=== PATIENT | female | born 1955 | race Caucasian/White ===

== ENCOUNTER → 2018-03-24 12:13 | Outpatient (CLI) | payer OTHER, SELFPAY ==
--- NOTE | 2018-03-24 | DI.MG.S_ITS ---
BILATERAL DIGITAL SCREENING MAMMOGRAM 3D/2D WITH CAD: 03/24/2018 CLINICAL: Routine screening. Comparison is made to exams dated: 11/26/2016 mammogram, 10/18/2015 mammogram, and 07/11/2014 mammogram - [facility]. There are scattered fibroglandular elements in both breasts. Current study was also evaluated with a Computer Aided Detection (CAD) system. No significant masses, calcifications, or other findings are seen in either breast. There has been no significant interval change. IMPRESSION: NEGATIVE There is no mammographic evidence of malignancy. A 1 year screening mammogram is recommended. This exam was interpreted at Station ID: [id number]. NOTE: For mammograms, a report in lay terms will be sent to the patient. Approximately 15% of breast malignancies will not be visualized mammographically. In the management of a palpable breast mass, a negative mammogram must not discourage biopsy of a clinically suspicious lesion. Electronically Signed By: Leonard villalba/lorenzo:03/25/2018 17:45:38 copy to: Linda Og letter sent: Normal Exam ACR BI-RADS Category 1: Negative 3341F
== END ==
PROVIDERS: PCP Internal Medicine; Visit Provider Internal Medicine
DX: Z12.31 Encounter for screening mammogram for malignant neoplasm of breast (principal)
CPT/HCPCS: 77063; 77067

== ENCOUNTER 2018-05-19 10:31 | Day surgery (SDC) | payer OTHER, SELFPAY ==
[2018-05-19] VITALS (7 sets, daily range): BP systolic 111–141; BP diastolic 69–82; PULSE 86–105; RESP 10–18; TEMP 36.8–37.3; O2SAT 96–97; BMI 25.8
--- NOTE | 2018-05-19 | PATH_ITS ---
[facility] Accession Number: [id number] . 01 Material submitted: . HEPATIC FLEXTURE POLYP . 02 Diagnosis: Hepatic Flexure Polyp: Tubular adenoma. MRV/05/20/2018 . 02 Electronically signed: . Librado Mckinney MD, PhD, Pathologist NPI- [id number] . 01 Gross description: . Received in one formalin-filled container labeled with the patient's name and labeled hepatic flexure polyp, are two 0.1-0.2 cm portions of tissue, entirely submitted in one cassette. ([id number]) /FRR . 02 Pathologist provided ICD-10: D12.3 . 02 CPT . 698467 Performed at: 01 [facility] [address] [id number] MD Leonides Genao MD Phone: [phone] Performed at: 02 [facility] [place] [address] [place], [place] [id number] MD Ger Cabrera MD Phone: [phone]
[2018-05-19] MEDS: SODIUM CHLORIDE 0.9% 1,000 ML 100 ML IV (10:44)
--- NOTE | 2018-05-19 12:10 | PM.HP.1 ---
History of Present Illness Date Patient Seen: 05/19/18 Time Patient Seen: 12:10 Chief complaint: [id number] Narrative: Personal history of colon polyps with extensive family history of colon polyps and a distant family member with colorectal cancer at an elderly age. Need for follow-up colonoscopy Patient History Medical History Acne (Chronic ~1985) Ankle pain (Chronic) Anxiety (Chronic) Cardiac arrhythmia (Chronic) Carpal tunnel syndrome (Chronic) Chlamydia (Chronic ~1981) Chronic back pain (Chronic ~2011) Colon polyps (Chronic ~2006) Foot pain (Chronic ~2004) Genital warts (Chronic ~1973) History of frequent headaches (Chronic) Hyperlipidemia (Chronic) Neck pain (Chronic ~2011) Osteoarthritis (Chronic ~2004) Plantar warts (Chronic ~1973) Shoulder pain (Chronic) Sleep apnea (Chronic ~2015) Thyroid nodule (Chronic ~2013) Tinnitus (Chronic ~2013) Urinary incontinence (Chronic ~2014) Vision abnormalities (Chronic ~1999) Abnormal Pap smear of cervix (Resolved) Chickenpox (Resolved) Fracture (Resolved ~1971) Measles (Resolved) Morphea (Resolved ~1979) Surgical History History of ankle surgery (Resolved) Anesthesia (Inactive) History of elective History of tonsillectomy (~1960) Family & Social History Social History: household members family Tobacco & Substance use: Smoking Status Never smoker Meds Home Medications Medication Instructions Recorded Confirmed Type lorazepam 0.5 mg tablet 0.25 mg PO BEDTIME PRN 03/24/18 05/19/18 History [ESTRADIOL PEARLS] 25 mcg VAGINAL 2XW #8 03/26/18 05/19/18 Rx Allergies Allergy/AdvReac Type Severity Reaction Status Date / Time Sulfa (Sulfonamide Allergy Unknown Verified 05/19/18 11:00 Antibiotics) [SULFA (SULFONAMIDE ANTIBIOTICS)] Exam Vital Signs (past 8 hours): - 05/19/18 10:46 Temperature 98.2 F Pulse Rate 105 H Respiratory Rate 16 Blood Pressure 141/82 H Pulse Oximetry 97 Oxygen Delivery Method Room Air Narrative Exam Narrative: Oral pharynx: Free of lesion Chest: Clear to auscultation percussion Cardiac exam: No S3 or murmur Assessment & Plan Plan: Assessment/Plan Narrative: Personal history of colon polyps and family history of colon polyps. Need for follow-up colonoscopy
[2018-05-19] MEDS: MIDAZOLAM 5 MG/5 ML VIAL IV (12:11)
[2018-05-19] MEDS: fentaNYL 250 MCG/5 ML INJ IV (12:12)
--- NOTE | 2018-05-19 12:12 | PM.OP.ENDO ---
Operative Date/Time/Diagnoses Date of procedure: 05/19/18 Time of procedure: 12:12 Pre-op diagnosis: See indication Post-op diagnosis: same Procedure & Clinicians Study performed: Colonoscopy Same procedure as scheduled: Yes Indications: Personal history of colon polyps and family history of colon polyps Surgeon: Mook Reveles Procedure Notes Procedure in detail: After informed consent was obtained the patient was placed in left lateral decubitus position. The video colonoscope was introduced the rectum and slowly advanced to the cecum. On slow withdrawal the mucosa was carefully examined. Preparation was good. Scope was removed. Patient tolerated the procedure well Blood loss none Complications none Sedation Fentanyl 100 mcg Versed 8 mg IV titration Total sedation time 18 min Findings 1. Extensive sigmoid diverticulosis 2. 3 mm polyp at the hepatic flexure Jumbo biopsy and removed completely 3. Otherwise negative colonoscopy to cecum Patient will be informed about biopsy results but will just routinely need follow-up in 5 years due to past history and family history.
== END 2018-05-19 13:17 | disposition home or self-care (01) ==
PROVIDERS: PCP Internal Medicine; Visit Provider Internal Medicine Gastroenterology
PROC: 0DJD8ZZ Inspection of Lower Intestinal Tract, Via Natural or Artificial Opening Endoscopic (ICD-10-PCS; CPT 45378; principal; 2018-05-19 11:30)
DX: Z12.11 Encounter for screening for malignant neoplasm of colon (principal); D12.3 Benign neoplasm of transverse colon; K57.30 Diverticulosis of large intestine without perforation or abscess without bleeding; F41.9 Anxiety disorder, unspecified; E78.5 Hyperlipidemia, unspecified; Z86.010 Personal history of colon polyps; Z83.71 Family history of colonic polyps; G47.30 Sleep apnea, unspecified
CPT/HCPCS: 45380; J2250; J3010

== ENCOUNTER → 2019-01-21 10:57 | Outpatient (CLI) | payer OTHER, SELFPAY ==
--- NOTE | 2019-01-21 12:23 | DI.CT.S_ITS ---
PROCEDURE: CT ABDOMEN WWO PELVIS W INDICATIONS: CYST ON PANCREAS TECHNIQUE: After the administration of oral contrast, 5 mm thick sections acquired from the diaphragms to the iliac crests. After the administration of intravenous contrast, 5 mm thick sections acquired from the diaphragms to the symphysis. 5 mm thick coronal and sagittal reformats were acquired. For radiation dose reduction, the following was used: automated exposure control, adjustment of mA and/or kV according to patient size. COMPARISON: [facility], CT, ABDOMEN/PELVIS WITH CONTRAST, 11/27/2017, 11:26. [facility], CT, ABDOMEN W&WO CONTRAST, 12/07/2017, 12:38. FINDINGS: Image quality: Excellent. ABDOMEN: Lung bases: Lung bases are clear. Heart size is normal. Solid organs: Within the medial uncinate process of the pancreas, nodule measuring 7 mm in greatest diameter with a central polypoid component, morphology very similar compared to the prior study. No wall thickening, calcification, or significant enhancement. The pancreas otherwise enhances normally without ductal dilatation, surrounding inflammation, or other cystic or solid masses. Liver is normal in size and enhancement. Gallbladder is normal. Biliary system is non-dilated. Spleen is normal in size and enhancement. No adrenal nodules. Both kidneys are normal in size. No hydronephrosis or nephrolithiasis. Bowel and peritoneum: Stomach, small and large bowel loops are normal in caliber and wall thickness. No free fluid or air. Normal appendix. Nodes and vessels: No retroperitoneal or mesenteric adenopathy by size criteria. Aorta and inferior vena are normal in caliber. Miscellaneous: No ventral hernias. PELVIS: Genitourinary: Bladder wall thickness is normal. Retroverted uterus with a large exophytic uterine fibroid measuring approximately 5.6 cm in diameter. Miscellaneous: No inguinal hernias or adenopathy. Bones: No suspicious bony lesions. No vertebral body compression fractures. Lower lumbar degenerative disc and endplate changes. IMPRESSION: 1. Stable subcentimeter uncinate process pancreatic nodule without suspicious features. One year followup pancreatic protocol CT to assess size is recommended. Dictated by: Ana Whiteside M.D. on 01/21/2019 at 13:32 Approved by: Ana Whiteside M.D. on 01/21/2019 at 13:43
== END ==
PROVIDERS: PCP Specialist; Visit Provider Internal Medicine
DX: K86.2 Cyst of pancreas (principal)
CPT/HCPCS: 74177; 74178; Q9967

== ENCOUNTER → 2019-04-05 12:01 | Outpatient (CLI) | payer OTHER, SELFPAY ==
--- NOTE | 2019-04-05 | DI.MG.S_ITS ---
BILATERAL DIGITAL SCREENING MAMMOGRAM 3D/2D WITH CAD: 04/05/2019 CLINICAL: Routine screening. Comparison is made to exams dated: 03/24/2018 mammogram, 11/26/2016 mammogram, and 10/18/2015 mammogram - [facility]. There are scattered fibroglandular elements in both breasts. Current study was also evaluated with a Computer Aided Detection (CAD) system. No significant masses, calcifications, or other findings are seen in either breast. There has been no significant interval change. IMPRESSION: NEGATIVE There is no mammographic evidence of malignancy. A 1 year screening mammogram is recommended. This exam was interpreted at Station ID: [id number]. NOTE: For mammograms, a report in lay terms will be sent to the patient. Approximately 15% of breast malignancies will not be visualized mammographically. In the management of a palpable breast mass, a negative mammogram must not discourage biopsy of a clinically suspicious lesion. Electronically Signed By: Jarad bergeron/lorenzo:04/05/2019 18:48:59 copy to: Linda Og letter sent: Normal Exam ACR BI-RADS Category 1: Negative 3341F
--- NOTE | 2019-04-05 | DI.RAD.S_ITS ---
PROCEDURE: XR FOOT RT MIN 3V INDICATIONS: RIGHT HEEL PAIN TECHNIQUE: 3 views of the foot were acquired. COMPARISON: [facility], , FOOT 3V RIGHT, 12/08/2013, 9:26. [facility], , FOOT 3V RIGHT, 10/28/2010, 16:02. FINDINGS: Bones: No fractures or dislocations. No suspicious bony lesions. There are severe osteoarthritis at the MTP joint is present. Soft tissues: No tibiotalar joint effusion. Achilles tendon appears normal. IMPRESSION: No trauma found. Osteoarthritis at the first MTP joint is prominent. A source of calcaneal pain is not seen. Dictated by: Mario Alberto Fragoso M.D. on 04/05/2019 at 14:35 Approved by: Mario Alberto Fragoso M.D. on 04/05/2019 at 15:20
== END ==
PROVIDERS: Visit Provider Internal Medicine
DX: Z12.31 Encounter for screening mammogram for malignant neoplasm of breast (principal); M79.671 Pain in right foot; M19.071 Primary osteoarthritis, right ankle and foot
CPT/HCPCS: 73630; 77063; 77067

== ENCOUNTER → 2020-02-22 12:16 | Outpatient (CLI) | payer OTHER, SELFPAY ==
--- NOTE | 2020-02-22 | DI.RAD.S_ITS ---
PROCEDURE: XR LUMBAR SPINE 2-3V INDICATIONS: Low Back Pain TECHNIQUE: 3 views of the lumbar spine were acquired. COMPARISON: None. FINDINGS: Bones: No fracture or focal osseous destruction. Straightening of the normal lordotic curvature. Multilevel degenerative endplate sclerosis and spurring. Diffuse facet arthropathy. Severe narrowing of the L3-L4 and L4-L5 disc space. Mild narrowing of the L5-S1 disc space. Mild narrowing of the remaining visualized disc spaces. Mild levocurvature. Sacroiliac joints appear grossly intact, with degenerative sclerosis. Soft tissues: Overlying bowel gas pattern is normal. No suspicious soft tissue calcifications. IMPRESSION: Multilevel lumbar spondylosis, most pronounced at L3-L4. Diffuse facet arthropathy Mild levocurvature Dictated by: Rafat Hoffmann M.D. on 02/22/2020 at 13:46 Approved by: Rafat Hoffmann M.D. on 02/22/2020 at 13:48
== END ==
PROVIDERS: PCP Internal Medicine; Referring Provider Internal Medicine; Visit Provider Internal Medicine
DX: M54.5 Low back pain (principal); M47.816 Spondylosis without myelopathy or radiculopathy, lumbar region
CPT/HCPCS: 72100

== ENCOUNTER → 2020-03-17 09:44 | Outpatient (CLI) | payer OTHER, SELFPAY ==
[2020-03-17 10:25] LABS: Hematocrit 41.2 % (36-46); Hemoglobin 14.2 g/dL (12.0-16.0); Mean Corpuscular HGB Conc 34.5 % (30-36); Mean Corpuscular Hemoglobin 30.8 PG (26-34); Mean Corpuscular Volume 89.4 fL (80-100); Platelet Count 353 X10^3/uL (150-400); Red Cell Distribution Width 13.3 % (11.6-14.8); White Blood Cell Count 5.8 X10^3/uL (4.5-11.0)
[2020-03-17 10:42] LABS: Alanine Aminotransferase 26 IU/L (<35); Albumin 4.6 g/dL (3.5-5.0); Albumin Globulin Ratio 1.7 (1.0-2.8); Alkaline Phosphatase 54 U/L (38-126); Aspartate Aminotransferase 36 IU/L (14-36); BUN Creatinine Ratio 11.1 (6-22); Bilirubin Total 0.5 mg/dL (0.2-1.3); Blood Urea Nitrogen 10 mg/dL (7-17); Calcium 10.5 mg/dL (8.4-10.2); Carbon Dioxide 30 mmol/L (22-32); Chloride 104 mmol/L (98-107); Cholesterol 254 mg/dL (140-199); Estimated Glomerular Filt Rate > 60.0 mL/min (>60); Globulin 2.7 g/dL (1.7-4.1); Glucose 95 mg/dL (80-110); HDL Cholesterol 49 mg/dL (40-60); HEMOLYSIS < 15 (0-50); LDL Cholesterol Calculated 182 mg/dL (<100); Lipase 69 U/L (23-300); Sodium 140 mmol/L (137-145); Total Protein 7.3 g/dL (6.3-8.2); Triglycerides 117 mg/dL (35-150)
[2020-03-17 10:49] LABS: C-Reactive Protein Quant < 0.5 mg/dL (<1.0)
[2020-03-17 11:05] LABS: TSH w/ Reflex to FT4 2.75 uIU/mL (0.47-4.68)
[2020-03-17 11:07] LABS: Erythrocyte Sedimentation Rate 9 MM/HR (0-20)
== END ==
PROVIDERS: PCP Internal Medicine; Referring Provider Internal Medicine; Visit Provider Internal Medicine
DX: M35.3 Polymyalgia rheumatica (principal)
CPT/HCPCS: 36415; 80053; 80061; 83690; 84443; 85027; 85651; 86140

== ENCOUNTER → 2020-03-21 08:43 | Outpatient (CLI) | payer OTHER, SELFPAY ==
--- NOTE | 2020-03-21 | DI.CT.S_ITS ---
PROCEDURE: CT ABDOMEN W CON INDICATIONS: CYST OF PANCREAS TECHNIQUE: After the administration of intravenous contrast, 5 mm thick sections acquired from the diaphragm to the iliac crests. 5 mm coronal and sagittal reformats were performed. For radiation dose reduction, the following was used: automated exposure control, adjustment of mA and/or kV according to patient size. COMPARISON: [facility], CT, ABDOMEN W&WO CONTRAST, 12/07/2017, 12:38. [facility], CT, CT ABDOMEN WWO PELVIS W, 01/21/2019, 11:53. FINDINGS: Image quality: Excellent. Lung bases: Lung bases are clear. Heart size is normal. Solid organs: Liver is normal in size and enhancement. Gallbladder is unremarkable. Biliary system is non dilated. Insonated process pancreas lesion is unchanged in appearance, previously measuring 7 mm in currently measuring 6 mm, with a peripheral low-density component and a central higher density component, possibly representing a small polypoid area. It is unchanged dating back to 12/07/17. Spleen is normal in size and enhancement. No adrenal nodules. Kidneys demonstrate normal size and enhancement, without hydronephrosis. Peritoneum and bowel: Bowel loops demonstrate normal wall thickness and caliber. No free fluid or air. Nodes and vessels: No retroperitoneal or mesenteric adenopathy by size criteria. Aorta and inferior vena cava are normal in size. Miscellaneous: No ventral hernias. IMPRESSION: Stable subcentimeter low-density nodular lesion of the uncinate process of the pancreas. Continued 1 year follow-up pancreatic protocol CT is suggested. Dictated by: Parveen Ocasio M.D. on 03/21/2020 at 11:08 Approved by: Parveen Ocasio M.D. on 03/21/2020 at 11:40
== END ==
PROVIDERS: PCP Internal Medicine; Referring Provider Internal Medicine; Visit Provider Internal Medicine
DX: K86.2 Cyst of pancreas (principal)
CPT/HCPCS: 74160; Q9967

== ENCOUNTER → 2020-04-25 14:10 | Outpatient (CLI) | payer OTHER, SELFPAY ==
--- NOTE | 2020-04-25 | DI.US.S_ITS ---
PROCEDURE: US PELVIC COMPLETE INDICATIONS: Menopausal Subserosal leiomyoma of uterus TECHNIQUE: Real-time scanning was performed of the pelvic organs, with image documentation. Additional endovaginal scanning was necessary due to incomplete visualization of the adnexal and endometrial structures by transabdominal scanning. COMPARISON: [facility], CT, CT ABDOMEN WWO PELVIS W, 01/21/2019, 11:53. [facility], CT, CT ABDOMEN W CON, 03/21/2020, 9:02. FINDINGS: Transabdominal scanning: Limited scanning through the kidneys shows no hydronephrosis. No pathologic free abdominal or pelvic fluid. Endovaginal scanning: Uterus: Uterus is normal in size at 6.4 x 3.9 x 5.8 cm. There is a an exophytic fibroid seen on the right, measuring 5.5 x 4.5 x 4.7 centimeters. The endometrium measures 2 mm in combined thickness. Ovaries: Neither ovary can be seen. No adnexal masses are seen on either side. IMPRESSION: There is a 5.5 centimeter exophytic fibroid seen on the right side. This is similar to the January 21, 2019 CT examination. Dictated by: Dallin Martínez M.D. on 04/25/2020 at 15:37 Approved by: Dallin Martínez M.D. on 04/25/2020 at 15:40
== END ==
PROVIDERS: PCP Internal Medicine; Referring Provider Internal Medicine; Visit Provider Internal Medicine
DX: D25.2 Subserosal leiomyoma of uterus (principal); Z78.0 Asymptomatic menopausal state; R29.890 Loss of height
CPT/HCPCS: 76856; 77080

== ENCOUNTER → 2020-04-30 09:04 | Outpatient (CLI) | payer OTHER, SELFPAY ==
[2020-04-30 09:39] LABS: Calcium 9.9 mg/dL (8.4-10.2)
[2020-04-30 09:59] LABS: Vitamin D 25 Hydroxy (D3) 32.9 ng/mL (30.0-100.0)
[2020-05-01 18:36] LABS: Ionized Calcium 5.1 mg/dL (4.5-5.6); Parathyroid Hormone Int 35 pg/mL (15-65)
== END ==
PROVIDERS: PCP Internal Medicine; Referring Provider Internal Medicine; Visit Provider Internal Medicine
DX: E83.52 Hypercalcemia (principal)
CPT/HCPCS: 36415; 82306; 82310; 82330; 83970

== ENCOUNTER → 2020-12-08 11:13 | Outpatient (CLI) | payer OTHER, SELFPAY ==
--- NOTE | 2020-12-08 | DI.MG.S_ITS ---
BILATERAL DIGITAL SCREENING MAMMOGRAM 3D/2D WITH CAD: 12/08/2020 CLINICAL: Routine screening. Comparison is made to exams dated: 04/05/2019 mammogram, 03/24/2018 mammogram, and 11/26/2016 mammogram - [facility]. There are scattered fibroglandular elements in both breasts. Current study was also evaluated with a Computer Aided Detection (CAD) system. No significant masses, calcifications, or other findings are seen in either breast. There has been no significant interval change. IMPRESSION: NEGATIVE There is no mammographic evidence of malignancy. A 1 year screening mammogram is recommended. This exam was interpreted at Station ID: [id number]. NOTE: For mammograms, a report in lay terms will be sent to the patient. Approximately 15% of breast malignancies will not be visualized mammographically. In the management of a palpable breast mass, a negative mammogram must not discourage biopsy of a clinically suspicious lesion. Electronically Signed By: Ana mondragon/lorenzo:12/10/2020 09:20:26 copy to: Linda Og letter sent: Normal Exam ACR BI-RADS Category 1: Negative 3341F
== END ==
PROVIDERS: PCP Internal Medicine; Referring Provider Internal Medicine; Visit Provider Internal Medicine
DX: Z12.31 Encounter for screening mammogram for malignant neoplasm of breast (principal)
CPT/HCPCS: 77063; 77067

== ENCOUNTER → 2021-02-18 10:40 | Outpatient (CLI) | payer OTHER, SELFPAY ==
--- NOTE | 2021-02-18 10:42 | DI.RAD.S_ITS ---
PROCEDURE: XR ANKLE RT MIN 3V INDICATIONS: rock dropped on foot TECHNIQUE: 3 views of the ankle were acquired. COMPARISON: None. FINDINGS: Bones: No fractures or dislocations. Ankle mortise is normally aligned. No suspicious bony lesions. Plantar and posterior calcaneal spurring. Soft tissues: No tibiotalar joint effusion. Achilles tendon appears normal. IMPRESSION: No acute fracture. If the patient's pain or other symptoms persist, consider further evaluation with MRI Dictated by: Rafat Hoffmann M.D. on 02/18/2021 at 12:19 Approved by: Rafat Hoffmann M.D. on 02/18/2021 at 12:20
--- NOTE | 2021-02-18 10:42 | DI.RAD.S_ITS ---
PROCEDURE: XR FOOT RT MIN 3V INDICATIONS: rock dropped on foot TECHNIQUE: 3 views of the foot were acquired. COMPARISON: [facility], CR, XR FOOT RT MIN 3V, 04/05/2019, 13:51. FINDINGS: Bones: No acute fracture identified. There is moderate 1st MTP osteoarthritis with associated bulky osteophyte formation especially along the dorsal aspect. Plantar calcaneal spurring is present. Soft tissues: No tibiotalar joint effusion. Achilles tendon appears normal. IMPRESSION: No acute fracture seen. 1st MTP osteoarthritis with associated bulky osteophyte formation raising the possibility of chronic hallux rigidus. Dictated by: Rafat Hoffmann M.D. on 02/18/2021 at 12:17 Approved by: Rafat Hoffmann M.D. on 02/18/2021 at 12:19
== END ==
PROVIDERS: PCP Internal Medicine; Referring Provider Physician Assistant; Visit Provider Physician Assistant
DX: R60.9 Edema, unspecified (principal); M19.071 Primary osteoarthritis, right ankle and foot; M77.31 Calcaneal spur, right foot
CPT/HCPCS: 73610; 73630

== ENCOUNTER → 2021-08-20 09:34 | Outpatient (CLI) | payer OTHER, SELFPAY ==
--- NOTE | 2021-08-20 09:41 | DI.RAD.S_ITS ---
PROCEDURE: XR CERVICAL SPINE 2V OR 3V INDICATIONS: CERVICAL PAIN TECHNIQUE: 3 view(s) of the cervical spine were acquired. COMPARISON: None. FINDINGS: Bones: No fractures or dislocations to the T2 level. The lateral masses of C1 appear intact on the odontoid view. No suspicious bony lesions. Reversal of the normal cervical lordosis may be related to muscle spasm. Disc space narrowing and sclerotic facet joints noted at C4-5, C5-6 and C6-7. Craniovertebral relationships normal Soft tissues: No prevertebral soft tissue swelling. IMPRESSION: Degenerative disc disease and arthropathy mid cervical spine results in reversal the normal cervical lordosis. Approved by: Titi Whitaker M.D. on 08/20/2021 at 11:19
[2021-08-20 11:27] LABS: Hematocrit 40.7 % (36-46); Hemoglobin 14.2 g/dL (12.0-16.0); Mean Corpuscular HGB Conc 34.8 % (30-36); Mean Corpuscular Hemoglobin 30.9 PG (26-34); Platelet Count 369 X10^3/uL (150-400); Red Blood Cell Count 4.58 X10^6/uL (4.0-5.2); Red Cell Distribution Width 13.4 % (11.6-14.8); White Blood Cell Count 6.3 X10^3/uL (4.5-11.0)
[2021-08-20 11:28] LABS: Alanine Aminotransferase 28 IU/L (<35); Albumin 4.6 g/dL (3.5-5.0); Albumin Globulin Ratio 1.6 (1.0-2.8); Alkaline Phosphatase 57 U/L (38-126); Aspartate Aminotransferase 36 IU/L (14-36); BUN Creatinine Ratio 15.5 (6-22); Bilirubin Total 0.5 mg/dL (0.2-1.3); Blood Urea Nitrogen 13 mg/dL (7-17); Carbon Dioxide 29 mmol/L (22-32); Chloride 104 mmol/L (98-107); Cholesterol 296 mg/dL (140-199); Estimated Glomerular Filt Rate > 60.0 mL/min (>60); Globulin 2.9 g/dL (1.7-4.1); Glucose 96 mg/dL (80-110); HDL Cholesterol 76 mg/dL (40-60); HEMOLYSIS < 15 (0-50); LDL Cholesterol Calculated 201 mg/dL (<100); Potassium 4.3 mmol/L (3.4-5.1); Sodium 139 mmol/L (137-145); Total Protein 7.5 g/dL (6.3-8.2); Triglycerides 94 mg/dL (35-150)
[2021-08-20 11:59] LABS: TSH w/ Reflex to FT4 2.36 uIU/mL (0.47-4.68)
[2021-08-20 12:17] LABS: Hep C Virus Ab w/Reflex Quant NEGATIVE s/c (NEGATIVE)
== END ==
PROVIDERS: PCP Internal Medicine; Referring Provider Internal Medicine; Visit Provider Internal Medicine
DX: M48.02 Spinal stenosis, cervical region (principal); M47.812 Spondylosis without myelopathy or radiculopathy, cervical region; M50.323 Other cervical disc degeneration at C6-C7 level; Z11.59 Encounter for screening for other viral diseases; E78.2 Mixed hyperlipidemia; K86.2 Cyst of pancreas
CPT/HCPCS: 36415; 72040; 80053; 80061; 84443; 85027; 86803

== ENCOUNTER → 2021-08-29 10:28 | Outpatient (CLI) | payer OTHER, SELFPAY ==
--- NOTE | 2021-08-29 10:30 | DI.CT.S_ITS ---
PROCEDURE: CT ABDOMEN PELVIS W CON INDICATIONS: Cyst of pancreas. Lower pelvic pain TECHNIQUE: After the administration of oral and IV contrast, axial sections were acquired from the lung bases to the pubic symphysis. Coronal and sagittal reformats were performed. For radiation dose reduction, the following was used: automated exposure control, adjustment of mA and/or kV according to patient size. COMPARISON: [facility], CT, ABDOMEN/PELVIS WITH CONTRAST, 11/27/2017, 11:26. FINDINGS: Image quality: Excellent. Lung bases: Unremarkable. Heart: No significant findings. ABDOMEN: Liver: Decreased attenuation of the liver, compatible with hepatic steatosis. Normal enhancement and contour. A 6 mm hypoattenuating lesion in the right hepatic lobe (2-29), which may reflect a cyst or hemangioma. Gallbladder: No gallbladder wall thickening or pericholecystic fluid. Biliary ducts: Unremarkable. Pancreas: Redemonstrated 6 mm hypoattenuating lesion in the uncinate process (8-38), unchanged compared to prior studies. No pancreatic duct dilatation is appreciated. Spleen: Unremarkable. Adrenal Glands: Unremarkable. Kidneys and Ureters: Unremarkable. Stomach and Bowel: No evidence of intestinal obstruction or inflammatory change. Normal appearance of the appendix. Peritoneum: No abnormal intraperitoneal fluid. No free air. Ventral Wall: No hernia. Abdominal Nodes: No retroperitoneal or mesenteric adenopathy by size criteria. Vessels: Aorta and inferior vena cava are normal in size. PELVIS: Pelvic Organs: Redemonstrated hypoattenuating lesion extending from the right aspect of the uterus, measuring up to 5 cm, likely reflecting an exophytic fibroid. Bladder: Not well distended but grossly unremarkable. Pelvic Nodes: No enlarged lymph nodes. Miscellaneous: Small bilateral fat containing inguinal hernias are seen. Bones: Multifocal degenerative change IMPRESSION: 1. Stable hypoattenuating lesion in the pancreatic uncinate process dating back to 2018, which may reflect an IPMN or lipoma. Consider magnetic resonance imaging for further evaluation as clinically warranted. Dictated by: Jonathon Gallo M.D. on 08/29/2021 at 11:24 Approved by: Jonathon Gallo M.D. on 08/29/2021 at 11:43
== END ==
PROVIDERS: PCP Internal Medicine; Referring Provider Internal Medicine; Visit Provider Internal Medicine
DX: K86.2 Cyst of pancreas (principal); R10.2 Pelvic and perineal pain
CPT/HCPCS: 74177

== ENCOUNTER → 2023-01-08 09:09 | Outpatient (CLI) | payer OTHER, SELFPAY ==
--- NOTE | 2023-01-08 09:12 | DI.MG.S_ITS ---
BILATERAL DIGITAL SCREENING MAMMOGRAM 3D/2D WITH CAD: 01/08/2023 CLINICAL: Routine screening. Comparison is made to exams dated: 12/08/2020 mammogram, 04/05/2019 mammogram, 03/24/2018 mammogram, and 11/26/2016 mammogram - [facility]. There are scattered areas of fibroglandular density in both breasts (category b / 25%-50% glandular tissue). Current study was also evaluated with a Computer Aided Detection (CAD) system. No significant masses, calcifications, or other findings are seen in either breast. There has been no significant interval change. IMPRESSION: NEGATIVE There is no mammographic evidence of malignancy. A 1 year screening mammogram is recommended. Based on the Tyrer Cuzick model (a risk assessment model) the patient's lifetime risk is 6.8% and her 10 year risk is 3.7%. According to the ACR, ACS, and NCCN guidelines, an annual breast MRI exam along with mammogram is recommended if the patient's lifetime risk is 20% or greater. This exam was interpreted at Station ID: [id number]. NOTE: For mammograms, a report in lay terms will be sent to the patient. Approximately 15% of breast malignancies will not be visualized mammographically. In the management of a palpable breast mass, a negative mammogram must not discourage biopsy of a clinically suspicious lesion. Electronically Signed By: Tom rain/lorenzo:01/08/2023 13:06:33 copy to: Linda Og letter sent: Normal Exam ACR BI-RADS Category 1: Negative 3341F
[2023-01-08 10:13] LABS: Hematocrit 40.7 % (36-46); Hemoglobin 14.1 g/dL (12.0-16.0); Mean Corpuscular HGB Conc 34.7 % (30-36); Mean Corpuscular Hemoglobin 31.4 PG (26-34); Mean Corpuscular Volume 90.4 fL (80-100); Platelet Count 371 X10^3/uL (150-400); Red Cell Distribution Width 13.7 % (11.6-14.8); White Blood Cell Count 7.7 X10^3/uL (4.5-11.0)
[2023-01-08 10:21] LABS: Alanine Aminotransferase 29 IU/L (<35); Albumin 4.5 g/dL (3.5-5.0); Albumin Globulin Ratio 1.3 (1.0-2.8); Alkaline Phosphatase 45 U/L (38-126); Aspartate Aminotransferase 34 IU/L (14-36); BUN Creatinine Ratio 14.8 (6-22); Bilirubin Total 0.6 mg/dL (0.2-1.3); Blood Urea Nitrogen 13 mg/dL (7-17); Calcium 9.7 mg/dL (8.4-10.2); Carbon Dioxide 28 mmol/L (22-32); Chloride 103 mmol/L (98-107); Cholesterol 267 mg/dL (140-199); Estimated Glomerular Filt Rate > 60 mL/min (>60); Globulin 3.4 g/dL (1.7-4.1); Glucose 93 mg/dL (80-110); HDL Cholesterol 60 mg/dL (40-60); HEMOLYSIS < 15 (0-50); LDL Cholesterol Calculated 191 mg/dL (<100); Potassium 3.8 mmol/L (3.4-5.1); Sodium 140 mmol/L (137-145); Total Protein 7.9 g/dL (6.3-8.2); Triglycerides 80 mg/dL (35-150)
[2023-01-08 12:12] LABS: TSH w/ Reflex to FT4 1.78 uIU/mL (0.47-4.68)
[2023-01-13 17:53] LABS: ANA Screen, IFA Negative (.)
== END ==
PROVIDERS: PCP Internal Medicine; Referring Provider Internal Medicine; Visit Provider Internal Medicine
DX: Z12.31 Encounter for screening mammogram for malignant neoplasm of breast (principal); M35.01 Sjogren syndrome with keratoconjunctivitis; E78.2 Mixed hyperlipidemia; K86.2 Cyst of pancreas; R00.2 Palpitations
CPT/HCPCS: 36415; 77063; 77067; 80053; 80061; 84443; 85027; 86038

== ENCOUNTER → 2023-02-06 10:00 | Outpatient (CLI) | payer OTHER, SELFPAY ==
--- NOTE | 2023-02-06 10:02 | DI.CT.S_ITS ---
PROCEDURE: CT ABDOMEN PELVIS W CON INDICATIONS: pancreas cyst TECHNIQUE: After the administration of intravenous contrast, axial sections acquired from the lung bases to the pubic symphysis. Coronal and sagittal reformats were performed. For radiation dose reduction, the following was used: automated exposure control, adjustment of mA and/or kV according to patient size. COMPARISON: [facility], CT, CT ABDOMEN PELVIS W CON, 08/29/2021, 11:05. FINDINGS: Image quality: Excellent. Lung bases: Unremarkable. Heart: No significant findings. ABDOMEN: Liver: Unremarkable. Gallbladder: Unremarkable. Biliary ducts: Unremarkable. Pancreas: Stable 6 mm hypoattenuating lesion in the uncinate process, likely IPMN. No new or growing pancreatic lesions. Spleen: Unremarkable. Adrenal Glands: Unremarkable. Kidneys and Ureters: Unremarkable. Stomach and Bowel: Stomach, small bowel loops, and colon are unremarkable. Peritoneum: No abnormal intraperitoneal fluid. No free air. Ventral Wall: No hernias. Abdominal Nodes: No retroperitoneal or mesenteric adenopathy by size criteria. Vessels: Aorta and inferior vena cava are normal in size. PELVIS: Pelvic Organs: Unchanged size and appearance of exophytic fibroid off the uterus, measuring 5.0 x 4.2 cm. Bladder: Unremarkable. Pelvic Nodes: No enlarged lymph nodes. Miscellaneous: Small fat containing right inguinal hernia. Bones: Lumbar degenerative change. No lytic or blastic bony lesions. No compression fractures. IMPRESSION: 1. Stable 6 mm low-density lesion in the uncinate process of the pancreas, likely IPMN. 2. Unchanged 5 cm exophytic uterine fibroid. Dictated by: Parveen Ocasio M.D. on 02/06/2023 at 12:36 Approved by: Parveen Ocasio M.D. on 02/06/2023 at 12:41
== END ==
PROVIDERS: PCP Internal Medicine; Referring Provider Internal Medicine; Visit Provider Internal Medicine
DX: K86.2 Cyst of pancreas (principal); D25.9 Leiomyoma of uterus, unspecified; K40.90 Unilateral inguinal hernia, without obstruction or gangrene, not specified as recurrent
CPT/HCPCS: 74177; Q9967

== ENCOUNTER 2023-05-20 07:26 | Day surgery (SDC) | payer OTHER, SELFPAY ==
--- NOTE | 2023-05-20 | PATH_ITS ---
[facility] Accession Number: [id number] No. of containers..02 Tissue . 01 Material submitted: . PART A: cecum - CECUM PART B: colon - HEPATIC . 01 Diagnosis: A. Cecal Polyp: Tubular adenoma. . B. Hepatic Flexure: Colonic mucosa with no diagnostic abnormality. Negative for active, chronic, and microscopic colitis. Negative for dysplasia and malignancy. . MRV 05/26/2023 1743 Local . 01 Electronically signed: . Librado Mckinney MD, PhD, Pathologist NPI- [id number] . 01 Gross description: . A. Received in formalin labeled with the patient's name, and cecum, consists of a single cabrera soft tissue fragment measuring 0.5 cm in greatest dimension. Submitted entirely in cassette A1. B. Received in formalin labeled with the patient's name, and hepatic, consists of a single cabrera soft tissue fragment measuring 0.2 cm in greatest dimension. Submitted entirely in cassette B1. ([id number]) /MRV 05/22/2023 1515 Local . 01 Pathologist provided ICD-10: Z86.010, D12.0 . 01 CPT . 851421, 892863 Specimen Comment: A courtesy copy of this report has been sent to [phone] Performed at: 01 [facility] [address] [place] [address], [place], [place] [id number] MD Leonides Genao MD Phone: [phone]
[2023-05-20 08:09] VITALS: BP 126/89; PULSE 116; RESP 16; TEMP 36.2; O2SAT 98; BMI 20.2
[2023-05-20] MEDS: LACTATED RINGERS 1,000 ML 150 ML IV (08:15)
--- NOTE | 2023-05-20 08:37 | PM.HP.1 ---
History of Present Illness History of Present Illness Date Patient Seen: 05/20/23 Chief complaint: Colonoscopy Narrative: History of colon polyps [facility] Medical History Abnormal Pap smear of cervix Acne (~1985) Alcohol use disorder Ankle pain Anxiety (~2011) Bilateral bunions Carpal tunnel syndrome Cataract, right eye Cervical spine disease (~2013) Chickenpox (~1959) Chlamydia (~1981) Chronic back pain (~2011) Colon polyps (~2006) Cyst of pancreas (~2013) Depression Foot pain (~2004) Fracture (~1971) Generalized anxiety disorder Genital warts (~1973) History of colonic polyps History of frequent headaches Knee pain Lumbar spine pain (~1982) Measles Menopausal syndrome Mixed hyperlipidemia Morphea (~1979) Mumps Neck pain (~2011) Obstructive sleep apnea Osteoarthritis (~2004) Plantar warts (~1973) Polymyalgia rheumatica Rheumatoid arthritis Sensation of lump in throat (~2011) Shoulder pain (~2020) Sleep apnea (~2015) Thyroid nodule (~2013) Tinnitus (~2013) Urinary incontinence (~2014) Vision abnormalities (~1999) Surgical History Anesthesia History of ankle surgery History of cataract removal with insertion of prosthetic lens (~2021) History of elective History of tonsillectomy (~1960) Family History Brother Age: 68 High cholesterol Colon polyps Father Cancer High cholesterol Asthma Colon polyps Mother Age: 96 Alzheimer's disease Heart disease Skin cancer Atrial fibrillation High cholesterol Grandfather Colon cancer Grandmother No problems noted. Grandfather Multiple organ failure Grandmother Asthma Family/Other Mentally disabled Microcephaly-capillary malformation syndrome Social History household members: family Smoking Status: Never smoker alcohol intake: never Meds Home Medications and Allergies Home Medications Medication Instructions Recorded Confirmed Type multivitamin 1 tab PO DAILY 05/12/22 05/20/23 History lorazepam 1 mg tablet 1 mg PO DAILY PRN anxiety #30 tabs 04/28/23 05/20/23 Rx Allergies Allergy/AdvReac Type Severity Reaction Status Date / Time Sulfa (Sulfonamide Allergy Unknown Verified 05/20/23 08:08 Antibiotics) [SULFA (SULFONAMIDE ANTIBIOTICS)] venlafaxine AdvReac Intermediate tinnitus Verified 05/20/23 08:08 Exam Vital Signs (past 8 hours): - 05/20/23 08:09 Temperature 97.1 F L Pulse Rate 116 H Respiratory Rate 16 Blood Pressure 126/89 Pulse Oximetry 98 Oxygen Delivery Method Room Air Oxygen Delivery Method Room Air Narrative Exam Narrative: Oropharynx free of lesions Chest clear to auscultation percussion Cardiac exam reveals no S3 or murmur Assessment & Plan Assessment & Plan narrative: History of colon polyps need for follow-up colonoscopy. Risks, benefits, alternatives have been explained.
--- NOTE | 2023-05-20 08:39 | PM.OP.COLON ---
Operative Date/Time/Diagnoses Date of procedure: 05/20/23 Pre-op diagnosis: See indication and findings Procedure & Clinicians Study performed: Colonoscopy Indications: History of colon polyps Surgeon: Mook Reveles Procedure Notes Procedure in detail: After informed consent was obtained patient was placed in left lateral decubitus position. The video colonoscope was introduced the rectum slowly advanced to the cecum. Preparation was good. On slow withdrawal mucosa was carefully examined. The scope was removed. The patient tolerated procedure well. Blood loss none Complications none Sedation mac Findings 1. 3 mm polyp on the removed cecum Jumbo biopsied and removed completely 2. 3 mm polyp at the hepatic flexure Jumbo biopsy removed completely 3. Otherwise negative colonoscopy to cecum Will be in touch regarding pathology results. Follow-up should be in at least 7 years.
[2023-05-20 09:10] VITALS: BP 108/68; PULSE 75; RESP 17; TEMP 36.7; O2SAT 98
[2023-05-20 09:15] VITALS: BP 111/70; PULSE 80; RESP 12; O2SAT 98
[2023-05-20 09:20] VITALS: BP 128/74; PULSE 85; RESP 13; O2SAT 97
[2023-05-20 09:25] VITALS: BP 134/80; PULSE 80; RESP 15; TEMP 36.7; O2SAT 100
[2023-05-20 09:32] VITALS: BP 134/79; PULSE 85; RESP 12; TEMP 37.1; O2SAT 99
== END 2023-05-20 09:48 | disposition home or self-care (01) ==
PROVIDERS: PCP Internal Medicine; Referring Provider Internal Medicine Gastroenterology; Visit Provider Internal Medicine Gastroenterology
PROC: 0DJD8ZZ Inspection of Lower Intestinal Tract, Via Natural or Artificial Opening Endoscopic (ICD-10-PCS; CPT 45378; principal; 2023-05-20 08:30)
DX: Z12.11 Encounter for screening for malignant neoplasm of colon (principal); Z86.010 Personal history of colon polyps; D12.0 Benign neoplasm of cecum
CPT/HCPCS: 45380; J2704

== ENCOUNTER → 2023-07-09 11:20 | Outpatient (CLI) | payer OTHER, SELFPAY ==
[2023-07-09 12:34] LABS: Hematocrit 41.8 % (36-46); Hemoglobin 14.2 g/dL (12.0-16.0); Mean Corpuscular Hemoglobin 30.5 PG (26-34); Mean Corpuscular Volume 89.8 fL (80-100); Platelet Count 360 X10^3/uL (150-400); Red Blood Cell Count 4.65 X10^6/uL (4.0-5.2); Red Cell Distribution Width 14.3 % (11.6-14.8)
[2023-07-09 13:34] LABS: Alanine Aminotransferase 48 IU/L (<35); Albumin 4.5 g/dL (3.5-5.0); Albumin Globulin Ratio 1.4 (1.0-2.8); Alkaline Phosphatase 47 U/L (38-126); Aspartate Aminotransferase 43 IU/L (14-36); Bilirubin Total 0.5 mg/dL (0.2-1.3); Blood Urea Nitrogen 12 mg/dL (7-17); Carbon Dioxide 28 mmol/L (22-32); Chloride 104 mmol/L (98-107); Cholesterol 251 mg/dL (140-199); Estimated Glomerular Filt Rate > 60 mL/min (>60); Globulin 3.2 g/dL (1.7-4.1); Glucose 94 mg/dL (80-110); HDL Cholesterol 58 mg/dL (40-60); HEMOLYSIS 18 (0-50); LDL Cholesterol Calculated 173 mg/dL (<100); Potassium 4.2 mmol/L (3.4-5.1); Sodium 141 mmol/L (137-145); Total Protein 7.7 g/dL (6.3-8.2); Triglycerides 102 mg/dL (35-150)
[2023-07-09 14:03] LABS: TSH w/ Reflex to FT4 1.19 uIU/mL (0.47-4.68)
[2023-07-09 14:20] LABS: Vitamin B12 391 pg/mL (239-931)
[2023-07-11 06:25] LABS: RPR Screen Non Reactive (Non Reactive)
== END ==
PROVIDERS: PCP Internal Medicine; Referring Provider Internal Medicine; Visit Provider Internal Medicine
DX: F22 Delusional disorders (principal); F29 Unspecified psychosis not due to a substance or known physiological condition; R41.82 Altered mental status, unspecified; E53.8 Deficiency of other specified B group vitamins; Z20.9 Contact with and (suspected) exposure to unspecified communicable disease; E78.2 Mixed hyperlipidemia
CPT/HCPCS: 36415; 80053; 80061; 82607; 84443; 85027; 86592

== ENCOUNTER → 2023-07-27 15:50 | Outpatient (CLI) | payer OTHER, SELFPAY ==
--- NOTE | 2023-07-27 15:52 | DI.MRI.S_ITS ---
PROCEDURE: MR HEAD/BRAIN WO/W CON INDICATIONS: altered mental status TECHNIQUE: Noncontrast axial T1 spin echo, axial T2 fast spin echo, sagittal and axial FLAIR, coronal T2 fast spin echo, axial gradient echo, axial diffusion and ADC through the brain. After the administration of contrast, axial and coronal and sagittal T1 spin echo with fat saturation through the brain. COMPARISON: [facility], MR, BRAIN (IAC) W&WO CONTRAST, 03/17/2016, 10:48. [facility], MR, BRAIN WITHOUT CONTRAST, 06/16/2014, 17:18. FINDINGS: Image quality: There is artifact associated with the metallic dental work. CSF spaces: Basal cisterns are patent. Mild bilateral chronic subdural hygromas can be seen anteriorly. Ventricles are normal in size and shape. Brain: No midline shift. No intracranial bleeds or masses. No abnormal intracranial enhancement. There is cerebral volume loss for age. There is periventricular white matter chronic small vessel ischemic change. The brainstem appears normal. Diffusion-weighted images demonstrate no acute ischemic insults. No chronic ischemic insults. Normal intravascular flow voids are present. Skull and face: Calvarial marrow is normal in signal. Orbits appear normal. Note is made of bilateral lens replacements. Sinuses: Sinuses and mastoids appear clear. IMPRESSION: No acute intracranial process is seen. Note is made of age-appropriate brain parenchymal volume loss and chronic small vessel ischemic changes. No masses or abnormal enhancement can be seen. Dictated by: Dallin Martínez M.D. on 07/27/2023 at 17:01 Approved by: Dallin Martínez M.D. on 07/27/2023 at 17:04
== END ==
PROVIDERS: PCP Internal Medicine; Referring Provider Internal Medicine; Visit Provider Internal Medicine
DX: F29 Unspecified psychosis not due to a substance or known physiological condition (principal); F22 Delusional disorders; R41.82 Altered mental status, unspecified
CPT/HCPCS: 70553; A9579

== ENCOUNTER → 2024-01-12 09:10 | Outpatient (CLI) | payer OTHER, SELFPAY ==
--- NOTE | 2024-01-12 09:11 | DI.MG.S_ITS ---
BILATERAL DIGITAL SCREENING MAMMOGRAM 3D/2D WITH CAD: 01/12/2024 CLINICAL: Routine screening. Comparison is made to exams dated: 01/08/2023 mammogram, 12/08/2020 mammogram, and 04/05/2019 mammogram - [facility]. There are scattered areas of fibroglandular density in both breasts (category b / 25%-50% glandular tissue). Current study was also evaluated with a Computer Aided Detection (CAD) system. No significant masses, calcifications, or other findings are seen in either breast. There has been no significant interval change. IMPRESSION: NEGATIVE There is no mammographic evidence of malignancy. A 1 year screening mammogram is recommended. Based on the Tyrer Cuzick model (a risk assessment model) the patient's lifetime risk is 6.4% and her 10 year risk is 3.8%. According to the ACR, ACS, and NCCN guidelines, an annual breast MRI exam along with mammogram is recommended if the patient's lifetime risk is 20% or greater. This exam was interpreted at Station ID: [id number]. NOTE: For mammograms, a report in lay terms will be sent to the patient. Approximately 15% of breast malignancies will not be visualized mammographically. In the management of a palpable breast mass, a negative mammogram must not discourage biopsy of a clinically suspicious lesion. Electronically Signed By: Fco butt/lorenzo:01/12/2024 17:40:22 copy to: Linda Og letter sent: Normal Exam ACR BI-RADS Category 1: Negative [id number]
[2024-01-12 12:45] LABS: Alanine Aminotransferase 27 IU/L (<35); Albumin 4.6 g/dL (3.5-5.0); Albumin Globulin Ratio 1.7 (1.0-2.8); Alkaline Phosphatase 53 U/L (38-126); Aspartate Aminotransferase 30 IU/L (14-36); Bilirubin Total 0.5 mg/dL (0.2-1.3); Blood Urea Nitrogen 16 mg/dL (7-17); Carbon Dioxide 29 mmol/L (22-32); Chloride 104 mmol/L (98-107); Cholesterol 281 mg/dL (140-199); Estimated Glomerular Filt Rate > 60 mL/min (>60); Globulin 2.7 g/dL (1.7-4.1); Glucose 83 mg/dL (80-110); HDL Cholesterol 63 mg/dL (40-60); HEMOLYSIS < 15 (0-50); LDL Cholesterol Calculated 203 mg/dL (<100); Potassium 4.1 mmol/L (3.4-5.1); Sodium 140 mmol/L (137-145); Total Protein 7.3 g/dL (6.3-8.2); Triglycerides 76 mg/dL (35-150)
== END ==
PROVIDERS: PCP Internal Medicine; Referring Provider Internal Medicine; Visit Provider Internal Medicine
DX: Z12.31 Encounter for screening mammogram for malignant neoplasm of breast (principal); R92.323 Mammographic fibroglandular density, bilateral breasts; E78.2 Mixed hyperlipidemia
CPT/HCPCS: 36415; 77063; 77067; 80053; 80061

== ENCOUNTER → 2024-01-22 09:16 | Outpatient (CLI) | payer OTHER, SELFPAY ==
--- NOTE | 2024-01-22 09:16 | DI.CT.S_ITS ---
PROCEDURE: CT ABDOMEN PELVIS W CON INDICATIONS: pancreatic cyst TECHNIQUE: After the administration of intravenous contrast, axial sections acquired from the lung bases to the pubic symphysis. Coronal and sagittal reformats were performed. For radiation dose reduction, the following was used: automated exposure control, adjustment of mA and/or kV according to patient size. COMPARISON: [facility], CT, CT ABDOMEN PELVIS W CON, 02/06/2023, 10:59. FINDINGS: Image quality: Diagnostic. Lower Chest: No significant findings. ABDOMEN: Liver: No solid mass. Gallbladder: No radiopaque gallstones or wall thickening. Biliary ducts: No biliary dilation. Pancreas: No ductal dilation. The cystic lesion in the inferior pancreatic head has decreased in size, measuring 2 x 3 millimeters, previously 5-6 millimeters (series 2, image 32). Spleen: Size is within normal limits. Adrenal Glands: No adrenal nodules. Kidneys and Ureters: No hydronephrosis. No solid mass. No complex renal cystic lesion which requires follow up. Stomach and Bowel: Normal colonic caliber, without significant wall thickening. Peritoneum: Small volume free fluid. Ventral Wall: No significant ventral hernia. Abdominal Nodes: No retroperitoneal or mesenteric adenopathy by size criteria. Vessels: Aorta and inferior vena cava are normal in size. PELVIS: Pelvic Organs: Stable 5 centimeter posterior uterine fibroid. Bladder: No bladder wall thickening, accounting for underdistention. Pelvic Nodes: No enlarged lymph nodes. Miscellaneous: Small, fat containing inguinal hernias. Bones: No aggressive osseous abnormality. Mild to moderate, multilevel degenerative disc disease and lower lumbar facet arthrosis. IMPRESSION: Interval decrease in size of the cystic lesion inferior pancreatic head, now measuring 2-3 millimeters. 2 year follow-up should be considered. Stable 5 centimeter posterior uterine fibroid. Dictated by: Yonathan Littlejohn M.D. on 01/22/2024 at 10:49 Approved by: Yonathan Littlejohn M.D. on 01/22/2024 at 11:02
== END ==
LOC: CT 09:16
PROVIDERS: PCP Internal Medicine; Referring Provider Internal Medicine; Visit Provider Internal Medicine
DX: K86.2 Cyst of pancreas (principal); D25.9 Leiomyoma of uterus, unspecified; K40.90 Unilateral inguinal hernia, without obstruction or gangrene, not specified as recurrent
CPT/HCPCS: 74177; Q9967

== ENCOUNTER → 2024-10-11 15:17 | Outpatient (CLI) | payer OTHER, SELFPAY ==
--- NOTE | 2024-10-11 15:19 | DI.RAD.S_ITS ---
PROCEDURE: XR CERVICAL SPINE 4V OR 5V INDICATIONS: NECK PAIN/RADICULOPATHY TECHNIQUE: 5 views of the cervical spine acquired. COMPARISON: [facility], CR, XR CERVICAL SPINE 2V OR 3V, 08/20/2021, 9:41. FINDINGS: Bones: No fractures or dislocations to the T1 level. Moderate degenerative changes most pronounced at C5-C6. Uncovertebral joint hypertrophy. Oblique images demonstrate no significant bony foraminal stenoses. Soft tissues: No prevertebral soft tissue swelling. IMPRESSION: Moderate degenerative changes in the cervical spine. Not significantly changed. Dictated by: Tom Siddiqui M.D. on 10/11/2024 at 22:54 Approved by: Tom Siddiqui M.D. on 10/11/2024 at 22:56
== END ==
PROVIDERS: PCP Internal Medicine; Referring Provider Internal Medicine; Visit Provider Internal Medicine
DX: M47.22 Other spondylosis with radiculopathy, cervical region
CPT/HCPCS: 72050

== ENCOUNTER → 2025-01-17 14:56 | Outpatient (CLI) | payer OTHER, SELFPAY ==
[2025-01-17 16:13] LABS: Hematocrit 39.3 % (36-46); Hemoglobin 13.5 g/dL (12.0-16.0); Mean Corpuscular HGB Conc 34.4 % (30-36); Mean Corpuscular Volume 90.1 fL (80-100); Platelet Count 328 X10^3/uL (150-400); Red Blood Cell Count 4.36 X10^6/uL (4.0-5.2); Red Cell Distribution Width 13.9 % (11.6-14.8); White Blood Cell Count 6.3 X10^3/uL (4.5-11.0)
[2025-01-17 16:56] LABS: Alanine Aminotransferase 20 IU/L (<35); Albumin 4.9 g/dL (3.5-5.0); Alkaline Phosphatase 46 U/L (38-126); Aspartate Aminotransferase 31 IU/L (14-36); BUN Creatinine Ratio 20.2 (6-22); Bilirubin Total 0.5 mg/dL (0.2-1.3); Blood Urea Nitrogen 19 mg/dL (7-17); Calcium 10.2 mg/dL (8.4-10.2); Carbon Dioxide 27 mmol/L (22-32); Chloride 101 mmol/L (98-107); Cholesterol 312 mg/dL (140-199); Estimated Glomerular Filt Rate > 60 mL/min (>60); Globulin 2.5 g/dL (1.7-4.1); Glucose 87 mg/dL (70-99); HDL Cholesterol 62 mg/dL (40-60); HEMOLYSIS 20 (0-50); LDL Cholesterol Calculated 209 mg/dL (<100); Potassium 4.2 mmol/L (3.4-5.1); Sodium 138 mmol/L (137-145); Total Protein 7.4 g/dL (6.3-8.2); Triglycerides 207 mg/dL (35-150)
[2025-01-17 17:26] LABS: TSH w/ Reflex to FT4 2.08 uIU/mL (0.47-4.68)
== END ==
PROVIDERS: PCP Internal Medicine; Referring Provider Internal Medicine; Visit Provider Internal Medicine
DX: E78.2 Mixed hyperlipidemia (principal); K86.2 Cyst of pancreas
CPT/HCPCS: 36415; 80053; 80061; 84443; 85027